=== PATIENT | female | born 1960 | race Asian ===

== ENCOUNTER 2019-10-04 10:15 | Day surgery (SDC) | payer MEDICAID ==
[2019-09-21 12:15] LABS: APPEARANCE,URINE CLEAR; BILIRUBIN, URINE NEGATIVE (NEGATIVE); GLUCOSE, URINE (UA) NEGATIVE (NEGATIVE); KETONES,URINE NEGATIVE (NEGATIVE); LEUKOCYTE ESTERASE ,URINE 1+ (NEGATIVE); NITRITE,URINE NEGATIVE (NEGATIVE); PH,URINE 5 (4.5-8.0); PROTEIN,URINE 2+ (NEGATIVE); UROBILINOGEN,URINE NORMAL MG/DL (0.0-1.0)
[2019-09-21 12:18] LABS: BASOPHILS % (AUTO) 0.7 % (0.0-2.0); EOSINOPHILS % (AUTO) 1.8 % (0.0-3.0); HEMATOCRIT 42.2 % (37.0-47.0); HEMOGLOBIN 13.7 G/DL (12.0-16.0); LYMPHOCYTES % (AUTO) 28.6 % (20.0-45.0); MEAN CORPUSCULAR VOLUME 93 FL (80-99); PLATELET COUNT 299 K/UL (150-450); RED BLOOD COUNT 4.55 M/UL (4.20-5.40); RED CELL DISTRIBUTION WIDTH 11.9 % (11.6-14.8); WHITE BLOOD COUNT 9.2 K/UL (4.8-10.8)
[2019-09-21 12:23] LABS: COLOR,URINE YELLOW
[2019-09-21 12:24] LABS: ANION GAP 11 mmol/L (5-15); BLOOD UREA NITROGEN 15 mg/dL (7-18); CALCIUM 9.7 MG/DL (8.5-10.1); CARBON DIOXIDE 28 MMOL/L (21-32); CHLORIDE 103 MMOL/L (98-107); CREATININE 0.8 MG/DL (0.55-1.30); POTASSIUM 4.2 MMOL/L (3.5-5.1); SODIUM 142 MMOL/L (136-145)
--- NOTE | 2019-09-21 12:49 | Diagnostic Imaging Report ---
Indication: Cough Technique: 2 views of the chest Comparison: None Findings: Lungs and pleural spaces are clear. The heart size is normal. The bones are unremarkable. The aorta is calcified. The bones are unremarkable Impression: Negative
--- NOTE | 2019-09-29 15:53 | Cardiology Report ---
APPROVED REPORT EKG Measurement Heart [id number] Normal sinus rhythm Normal ECG
--- NOTE | 2019-10-01 13:15 | Pre-op HX & Phy Repo 2 SIG ---
DATE OF ADMISSION: 10/04/2019 SCHEDULED FOR OUTPATIENT SURGERY: October 04, 2019. HISTORY OF PRESENT ILLNESS: The patient is a 58-year-old female in overall good health with ductal carcinoma in situ, left breast. The patient presented recently with a left breast mass. She underwent mammography and ultrasound. The imaging studies revealed two lesions in the right breast, one at 10 o'clock 4 cm from the nipple a 1.3 cm mass. Core biopsy revealed fibroadenoma. Also in the right breast at 12 o'clock, there was a 7 mm periareolar mass. Core biopsy revealed sclerosing adenosis. Recommendation was followup in six months. However, the left breast mass clinically present and palpable is at 2 o'clock 4 cm from the nipple measuring 3.3 x 1.2 x 1.4 cm and core biopsy views revealed ductal carcinoma in situ. She is scheduled to undergo left breast partial mastectomy. PAST MEDICAL HISTORY AND MEDICATIONS: None. ALLERGIES: Sulfa. OPERATIONS: section, excision of neck cyst, and removal of left breast cyst. REVIEW OF SYSTEMS: She is 3, para 3. Last menstrual period age 49. PHYSICAL EXAMINATION: GENERAL: She is well developed and well nourished, 5 foot 2 inches, 138 pounds. VITAL SIGNS: Within normal limits. HEENT: Within normal limits. LUNGS: Clear. HEART: Regular rhythm. BREASTS: Small. The right side has no palpable mass. The left side has a palpable mass at the areolar border at 2 o'clock measuring approximately 3 cm. There is no fixation. There is no palpable axillary, supraclavicular lymphadenopathy. ABDOMEN: Soft. PELVIC AND RECTAL: Per primary care. EXTREMITIES: Without edema. NEUROLOGIC: Physiologic. IMPRESSION: Left breast mass with core biopsy revealing ductal carcinoma in situ. PLAN: Left breast partial mastectomy. I have had a full discussion with the patient regarding the nature of her condition, the nature of the surgery, indications, alternatives, options, and risks including bleeding, infection, scarring or distortion of breast or nipple, need for additional treatment including more surgery or additional treatments, radiation therapy and others based on final pathology, and hormonal blockade as well. All questions have been answered. She understands and agrees to proceed. Mina Luna M.D. DR: MARTHA JOB#: [id number] CC:
[2019-10-04] VITALS (9 sets, daily range): BP systolic 138–160; BP diastolic 65–84
[~2019-10-04] VITALS: Ht 157.5 cm; Wt 62.6 kg
[2019-10-04] MEDS ORDERED: LR 1000ml 1,000 ML IVLG SCH (10:34)
--- NOTE | 2019-10-04 10:36 | Immediate Post-Op Evaluation ---
Immediate Post-Op Evalulation Immediate Post-Op Evalulation Procedure: L Breast Partial Mastectomy Date of Evaluation: Oct 04, 2019 Time of Evaluation: 13:25 IV Fluids: 700 LR Blood Products: 0 Estimated Blood Loss: 20 Urinary Output: 0 Blood Pressure Systolic: 143 Blood Pressure Diastolic: 70 Pulse Rate: 60 Respiratory Rate: 14 O2 Sat by Pulse Oximetry: 98 Temperature (Fahrenheit): 98.4 Pain Score (1-10): 2 Nausea: No Vomiting: No Complications 0 Patient Status: awake, reacts, patent, extubated, none Hydration Status: adequate Dru Gram Ancef IV Given Within 1 Hr of Incision: Yes Time Given: 12:11 Klaus Torres MD Oct 04, 2019 10:36
[2019-10-04] MEDS ORDERED: fentaNYL 100 mcg/2 mL IV PRN (10:45)
[2019-10-04] MEDS ORDERED: LORazepam Inj 2mg/ml 1ml IV PRN (10:45)
[2019-10-04] MEDS ORDERED: Midazolam 2mg/2ml Inj IVP PRN (10:45)
[2019-10-04] MEDS ORDERED: oxyCODONE HCL/Acetaminophen 5/325mg ORAL PRN (10:45)
[2019-10-04] MEDS ORDERED: Acetaminophen (Non formulary) 100 ML IV ONE (10:45)
[2019-10-04] MEDS ORDERED: DiphenhydrAMINE 50mg/ml Inj IVP PRN (10:45)
[2019-10-04] MEDS ORDERED: Labetalol 5mg/ml 20ml vial IV PRN (10:45)
[2019-10-04] MEDS ORDERED: HYDROcodone/Acetamin 5/325 tab ORAL PRN ×2 (10:45→13:15)
[2019-10-04] MEDS ORDERED: HYDROcodone/Acetamin 7.5/325 tab ORAL PRN (10:45)
[2019-10-04] MEDS ORDERED: Meperidine 50mg/ml Inj(FOR RIGORS ONLY) IVP PRN (10:45)
[2019-10-04] MEDS ORDERED: Metoclopramide 10mg/2ml Inj IVP PRN (10:45)
[2019-10-04] MEDS ORDERED: Ketorolac 30mg Inj IV PRN ×2 (10:45)
[2019-10-04] MEDS ORDERED: Hydromorphone 0.5mg/0.5ml inj IVP PRN (10:45)
[2019-10-04] MEDS ORDERED: Atropine Sulfate 0.4mg/ml inj IVP PRN (10:45)
[2019-10-04] MEDS ORDERED: TURMERIC 500 M1 EAC1 PO (10:57)
[2019-10-04] MEDS ORDERED: VITAMIN B COMP1 EAC2 ORAL (10:57)
--- NOTE | 2019-10-04 11:26 | Anethesia Preoperative Eval ---
Anesthesia Pre-op PMH/ROS General Date of Evaluation: Oct 04, 2019 Time of Evaluation: 12:02 Anesthesiologist: Melissa ASA Score: ASA 2 Mallampati Score Class I : Soft palate, uvula, fauces, pillars visible Class II: Soft palate, uvula, fauces visible Class III: Soft palate, base of uvula visible Class IV: Only hard plate visible Mallampati Classification: Class I Surgeon: Cheryl Diagnosis: L Breast CA In Situ Surgical Procedure: L Breast Partial Mastectomy Anesthesia History: none Family History: no anesthesia problems Allergies: Coded Allergies: SULFAMETHOXAZOLE (Verified Allergy, Unknown, SWOLLEN LIPS, 10/04/19) TRIMETHOPRIM (Verified Allergy, Unknown, SWOLLEN LIPS, 10/04/19) Medications: see eMAR Patient NPO?: Yes Past Medical History Cardiovascular: Reports: HTN, other - HL PSxH Narrative: L Breast Cyst Removed Anesthesia Pre-op Phys. Exam Physician Exam Last Vital Signs Date Time Temp Pulse Resp B/P (MAP) Pulse Ox O2 Delivery O2 Flow Rate FiO2 10/04/19 11:07 Room Air 10/04/19 10:58 97.5 61 18 138/82 99 Constitutional: NAD Neurologic: CN 2-12 intact Cardiovascular: RRR Respiratory: CTA Gastrointestinal: S/NT/ND Airway Exam Mallampati Score: Class I MO: full ROM: full Teeth: intact Anesthesia Pre-op A/P Risk Assessment & Plan Assessment: ASA 2 Plan: GA, SED Status Change Before Surgery: No Pre-Antibiotics Dru Gram Ancef IV Given Within 1 Hr of Incision: Yes Time Given: 12:11 Klaus Torres MD Oct 04, 2019 11:26
[2019-10-04] MEDS ORDERED: Lidocaine 1% MPF 10mg/ml 5ml ONE ×3 (11:32→11:41)
[2019-10-04] MEDS ORDERED: Sodium Chloride 10ml vial INJ ONE ×2 (11:40→11:41)
[2019-10-04] MEDS ORDERED: Dexamethasone 4mg/ml vial ONE ×2 (11:40→11:41)
[2019-10-04] MEDS ORDERED: Midazolam 2mg/2ml Inj ONE (11:41)
[2019-10-04] MEDS ORDERED: fentaNYL 100 mcg/2 mL IV ONE ×2 (11:41→12:40)
--- NOTE | 2019-10-04 11:42 | Pre-Procedure Note/Attestation ---
Pre-Procedure Note/Attestation Complete Prior to Procedure Planned Procedure: left Procedure Narrative: excision left breast mass ductal carcinoma in situ Indications for Procedure Pre-Operative Diagnosis: left breast mass DCIS Attestation I attest that I discussed the nature of the procedure; its benefits; risks and complications; and alternatives (and the risks and benefits of such alternatives ), prior to the procedure, with the patient (or the patient's legal accounts payable representative). I attest that, if there was a reasonable possibility of needing a blood transfusion, the patient (or the patient's legal accounts payable representative) was given the [facility] standardized written summary, pursuant to the [place] Blood Safety Act ([place] Health and Safety Code # 1645, as amended). I attest that I re-evaluated the patient just prior to the surgery and that there has been no change in the patient's H&P, except as documented below: none Mina Luna MD Oct 04, 2019 11:42
[2019-10-04] MEDS ORDERED: Bacitracin 50000 Units Vial ONE (11:48)
[2019-10-04] MEDS ORDERED: Lidocaine 1% 10mg/ml/Epi 0.005mg/ml 30ml vial INJ ONE (11:49)
[2019-10-04] MEDS ORDERED: Bupivacaine 0.5% Inj 30 ml vial INJ ONE (11:49)
[2019-10-04] MEDS ORDERED: Propofol 200mg/20ml IV ONE (11:59)
[2019-10-04] MEDS ORDERED: NS Irrig 1000ml ONE (12:00)
[2019-10-04] MEDS ORDERED: Sterile Water Irrig 1000ml IRRIG ONE (12:00)
[2019-10-04] MEDS ORDERED: LR 1000ml ONE (12:00)
--- NOTE | 2019-10-04 13:05 | Brief Operative Note ---
Immediate Post Operative Note Operative Note Pre-op Diagnosis: left breast mass DCIS Procedure: left breast partial mastectomy Post-op Diagnosis: same Post-op Diagnosis: same as pre-op Findings: consistent w/pre-op dx studies Surgeon: jai Anesthesiologist: freda Anesthesia: general Specimen: yes - left breast partial mastectomy Complications: none Condition: stable Fluids: see anesthesia record Estimated Blood Loss: minimal Drains: none Implant(s) used?: No Mina Luna MD Oct 04, 2019 13:04
[2019-10-04] MEDS ORDERED: Tylenol #3 tab (300mg/30mg) ORAL PRN (13:15)
[2019-10-04] MEDS ORDERED: HYDROmorphone 1mg/ml Carpuject SUBQ PRN (13:15)
[2019-10-04] MEDS ORDERED: D5 1/2NS 1,000 ML IV SCH (16:00)
--- NOTE | 2019-10-04 22:00 | Operative Note - Dictated ---
DATE OF OPERATION: 10/04/2019 SURGEON: Mina Luna M.D. SAP PI DEVELOPER: None. ANESTHESIOLOGIST: Klaus Torres M.D. TYPE OF ANESTHESIA: General. PREOPERATIVE DIAGNOSIS: Left breast mass with core biopsy revealing ductal carcinoma in situ. POSTOPERATIVE DIAGNOSIS: Left breast mass with core biopsy revealing ductal carcinoma in situ. OPERATION PERFORMED: Left breast partial mastectomy. DESCRIPTION OF PROCEDURE: The patient was taken to the operating room and under general anesthesia with sequential compression device stockings in place, she was prepped and draped in usual fashion. A curvilinear upper outer quadrant left breast incision was made as the lesion was located 4 cm from the nipple at 2 o'clock and measured 3.3 x 1.2 x 1.4 cm by ultrasound. Flaps were dissected circumferentially. A wide resection was performed orienting the specimen with suture markers placed anterior, superior, and medial. Specimen was given off the field for pathology. The field was irrigated and hemostasis carefully achieved with cautery. Incision was closed with 4-0 Vicryl continuous subcutaneous suture, followed by continuous of 4-0 Monocryl subcuticular suture. Mastisol and half-inch Steri-Strips were applied followed by dry sterile dressing. Final sponge needle counts were correct. The patient tolerated the procedure well and left the operating room in good condition. Mina Luna M.D. DR: LARRY JOB#: [id number] CC:
== END 2019-10-04 15:50 | disposition home or self-care (01) ==
LOC: SUR 10:15
DX: D05.12 Intraductal carcinoma in situ of left breast (principal); I10 Essential (primary) hypertension; Z88.2 Allergy status to sulfonamides; Z88.8 Allergy status to other drugs, medicaments and biological substances
CPT/HCPCS: 19301; 36415; 71046; 80048; 81001; 85025; 85610; 85730; 93005; J0690; J1100; J1885; J2250; J2405; J2704; J3010; Z7512; 94003; 94150

== ENCOUNTER 2019-12-08 07:08 | Inpatient (IN) | payer MEDICAID ==
[2019-12-06 09:53] LABS: APPEARANCE,URINE CLEAR; BILIRUBIN, URINE NEGATIVE (NEGATIVE); GLUCOSE, URINE (UA) NEGATIVE (NEGATIVE); KETONES,URINE NEGATIVE (NEGATIVE); LEUKOCYTE ESTERASE ,URINE 1+ (NEGATIVE); NITRITE,URINE NEGATIVE (NEGATIVE); PH,URINE 5 (4.5-8.0); PROTEIN,URINE NEGATIVE (NEGATIVE); UROBILINOGEN,URINE NORMAL MG/DL (0.0-1.0)
[2019-12-06 09:57] LABS: COLOR,URINE YELLOW
[2019-12-06 09:58] LABS: BASOPHILS % (AUTO) 0.9 % (0.0-2.0); EOSINOPHILS % (AUTO) 2.2 % (0.0-3.0); HEMATOCRIT 37.9 % (37.0-47.0); HEMOGLOBIN 12.6 G/DL (12.0-16.0); LYMPHOCYTES % (AUTO) 30.7 % (20.0-45.0); MEAN CORPUSCULAR VOLUME 94 FL (80-99); MONOCYTES % (AUTO) 6.4 % (1.0-10.0); NEUTROPHILS % (AUTO) 59.8 % (45.0-75.0); PLATELET COUNT 254 K/UL (150-450); RED BLOOD COUNT 4.03 M/UL (4.20-5.40); RED CELL DISTRIBUTION WIDTH 12.1 % (11.6-14.8); WHITE BLOOD COUNT 7.1 K/UL (4.8-10.8)
--- NOTE | 2019-12-07 09:15 | Pre-op HX & Phy Repo 2 SIG ---
DATE OF ADMISSION: 12/08/2019 SCHEDULED FOR SURGERY: December 08, 2019. HISTORY OF PRESENT ILLNESS: The patient is a 59-year-old female in overall good health, who underwent surgery October 04, 2019 for a left upper outer breast mass with core biopsy revealing ductal carcinoma in situ. 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 The patient is scheduled to undergo re-excision of her ductal carcinoma in situ, left breast and left axillary lymph node biopsy. The carcinoma is estrogen and progesterone receptor positive, HER2 negative. The patient underwent genetic testing, which was negative. The patient has been seen by Medical Oncology, who concurs. PAST MEDICAL HISTORY: None. MEDICATIONS: None. ALLERGIES: Sulfa. OPERATIONS: section x3, excision of neck cyst in the past many years ago, and excision of a cyst of the left breast. REVIEW OF SYSTEMS: The patient's last menstrual period was at age 49. She is 5, para 3. FAMILY HISTORY: Sister with a history of breast cancer at age 54. PHYSICAL EXAMINATION: GENERAL: The patient is 5 feet 1 inch, 135 pounds. VITAL SIGNS: Within normal limits. HEENT: Within normal limits. LUNGS: Clear. HEART: Regular rhythm. BREASTS: Reveals a curvilinear scar in the upper outer quadrant of the left breast which is nicely healed. There is no palpable mass in the left breast or in the right breast. There is no palpable axillary or supraclavicular lymphadenopathy. ABDOMEN: Soft. PELVIC: Per primary care. RECTAL: Per primary care. EXTREMITIES: Without edema. NEUROLOGIC: Physiologic. IMPRESSION: 1. Invasive mucinous carcinoma, left breast, status post left partial mastectomy with clear margins. 2. Ductal carcinoma in situ, left breast, 46 mm span with positive margins. PLAN: Reexcision left breast ductal carcinoma in situ and left axillary lymph node biopsy. I have had a full discussion with the patient regarding the surgery, indications, alternatives, options, and risks including bleeding, infection, neuralgia or neuritis, need for drain in the axilla, need for additional treatment based on final pathology including radiation therapy, chemotherapy, hormonal blockade and others, and discussed the risk of additional deformity or scarring or the breast. All questions have been answered. The patient understands and agrees to proceed. Mina Luna M.D. DR: CONG JOB#: [id number] CC:
[2019-12-08] VITALS (13 sets, daily range): BP systolic 97–152; BP diastolic 51–78
[~2019-12-08] VITALS: Ht 157.5 cm; Wt 63.3 kg
[~2019-12-08 07:08] MED LIST: TURMERIC 500 M1 EAC1 PO; VITAMIN B COMP1 EAC2 ORAL
--- NOTE | 2019-12-08 08:20 | Pre-Procedure Note/Attestation ---
Pre-Procedure Note/Attestation Complete Prior to Procedure Planned Procedure: left Procedure Narrative: re-excision DCIS left breast and left axillary lymph node biopsy Indications for Procedure Pre-Operative Diagnosis: Invasive carcinoma left breast and extensive ductal carcinoma in situ left breast Attestation I attest that I discussed the nature of the procedure; its benefits; risks and complications; and alternatives (and the risks and benefits of such alternatives ), prior to the procedure, with the patient (or the patient's legal client relations representative). I attest that, if there was a reasonable possibility of needing a blood transfusion, the patient (or the patient's legal client relations representative) was given the [facility] standardized written summary, pursuant to the [place] Blood Safety Act ([place] Health and Safety Code # 1645, as amended). I attest that I re-evaluated the patient just prior to the surgery and that there has been no change in the patient's H&P, except as documented below: none Mina Luna MD Dec 08, 2019 08:20
[2019-12-08 08:21] LABS: ANION GAP 8 mmol/L (5-15); BLOOD UREA NITROGEN 16 mg/dL (7-18); CALCIUM 8.8 MG/DL (8.5-10.1); CARBON DIOXIDE 27 MMOL/L (21-32); CHLORIDE 109 MMOL/L (98-107); CREATININE 0.7 MG/DL (0.55-1.30); SODIUM 144 MMOL/L (136-145)
[2019-12-08] MEDS ORDERED: Bupivacaine 0.5% Inj 30 ml vial INJ ONE (08:32)
[2019-12-08] MEDS ORDERED: Bacitracin 50000 Units Vial ONE (08:32)
[2019-12-08] MEDS ORDERED: Lidocaine 1% 10mg/ml/Epi 0.005mg/ml 30ml vial INJ ONE (08:32)
[2019-12-08] MEDS ORDERED: Bupivacaine w/Epi 0.5% 30ml Vial INJ ONE (08:32)
[2019-12-08] MEDS ORDERED: LR 1000ml 1,000 ML IVLG SCH (08:36)
[2019-12-08] MEDS ORDERED: Ketorolac 30mg Inj IV PRN ×2 (08:45)
[2019-12-08] MEDS ORDERED: Atropine Sulfate 0.4mg/ml inj IVP PRN (08:45)
[2019-12-08] MEDS ORDERED: Labetalol 5mg/ml 20ml vial IV PRN (08:45)
[2019-12-08] MEDS ORDERED: Hydromorphone 0.5mg/0.5ml inj IVP PRN (08:45)
[2019-12-08] MEDS ORDERED: LORazepam Inj 2mg/ml 1ml IV PRN (08:45)
[2019-12-08] MEDS ORDERED: HYDROcodone/Acetamin 5/325 tab ORAL PRN ×2 (08:45→12:30)
[2019-12-08] MEDS ORDERED: Metoclopramide 10mg/2ml Inj IVP PRN (08:45)
[2019-12-08] MEDS ORDERED: fentaNYL 100 mcg/2 mL IV PRN (08:45)
[2019-12-08] MEDS ORDERED: Meperidine 50mg/ml Inj(FOR RIGORS ONLY) IVP PRN (08:45)
[2019-12-08] MEDS ORDERED: Midazolam 2mg/2ml Inj IVP PRN (08:45)
[2019-12-08] MEDS ORDERED: Acetaminophen (Non formulary) 100 ML IV ONE (08:45)
[2019-12-08] MEDS ORDERED: DiphenhydrAMINE 50mg/ml Inj IVP PRN (08:45)
[2019-12-08] MEDS ORDERED: HYDROcodone/Acetamin 7.5/325 tab ORAL PRN (08:45)
[2019-12-08] MEDS ORDERED: oxyCODONE HCL/Acetaminophen 5/325mg ORAL PRN (08:45)
--- NOTE | 2019-12-08 08:46 | Anethesia Preoperative Eval ---
Anesthesia Pre-op PMH/ROS General Date of Evaluation: Dec 08, 2019 Time of Evaluation: 08:54 Anesthesiologist: Melissa ASA Score: ASA 3 Mallampati Score Class I : Soft palate, uvula, fauces, pillars visible Class II: Soft palate, uvula, fauces visible Class III: Soft palate, base of uvula visible Class IV: Only hard plate visible Mallampati Classification: Class I Surgeon: Cheryl Diagnosis: L Ductal Carcioma in Situ Surgical Procedure: Re Excision L Ductal Carcioma in Situ, L Axillary Node BX Anesthesia History: none Family History: no anesthesia problems Allergies: Coded Allergies: SULFAMETHOXAZOLE (Verified Allergy, Unknown, SWOLLEN LIPS, 12/07/19) TRIMETHOPRIM (Verified Allergy, Unknown, SWOLLEN LIPS, 12/07/19) Medications: see eMAR Patient NPO?: Yes NPO Date: Dec 07, 2019 NPO Time: 2029 Past Medical History Cardiovascular: Reports: HTN, other - HL Hematology/Immune: Reports: other - Breast CA PSxH Narrative: L Breast Sx Anesthesia Pre-op Phys. Exam Physician Exam Last Vital Signs Date Time Temp Pulse Resp B/P (MAP) Pulse Ox O2 Delivery O2 Flow Rate FiO2 12/08/19 07:43 Room Air 12/08/19 07:42 97.5 60 18 123/73 (90) 97 Constitutional: NAD Neurologic: CN 2-12 intact Cardiovascular: RRR Respiratory: CTA Gastrointestinal: S/NT/ND Airway Exam Mallampati Score: Class II MO: full ROM: full Teeth: missing Dentures: upper, lower Anesthesia Pre-op A/P Labs Chemistry Test 12/08/19 07:55 Sodium Level 144 MMOL/L (136-145) Potassium Level 4.0 MMOL/L (3.5-5.1) Chloride Level 109 MMOL/L (98-107) H Carbon Dioxide Level 27 MMOL/L (21-32) Anion Gap 8 mmol/L (5-15) Blood Urea Nitrogen 16 mg/dL (7-18) Creatinine 0.7 MG/DL (0.55-1.30) Estimat Glomerular Filtration Rate > 60 mL/min (>60) Glucose Level 94 MG/DL (74-106) Calcium Level 8.8 MG/DL (8.5-10.1) Risk Assessment & Plan Assessment: ASA 3 Plan: GA, SED Status Change Before Surgery: Yes Pre-Antibiotics Dru Gram Ancef IV Given Within 1 Hr of Incision: Yes Time Given: 09:11 Klaus Torres MD Dec 08, 2019 08:46
[2019-12-08] MEDS ORDERED: Lidocaine 1% Plain 30 ml INJ ONE (08:47)
[2019-12-08] MEDS ORDERED: Lidocaine 1% MPF 10mg/ml 5ml ONE (08:48)
[2019-12-08] MEDS ORDERED: Dexamethasone 4mg/ml vial ONE (08:48)
[2019-12-08] MEDS ORDERED: fentaNYL 100 mcg/2 mL IV ONE (08:48)
[2019-12-08] MEDS ORDERED: Sodium Chloride 10ml vial INJ ONE (08:48)
[2019-12-08] MEDS ORDERED: Propofol 1,000mg/ 100ml btl IV ONE (09:00)
[2019-12-08] MEDS ORDERED: Sterile Water Irrig 1000ml IRRIG ONE (09:00)
[2019-12-08] MEDS ORDERED: LR 1000ml ONE (09:00)
[2019-12-08] MEDS ORDERED: NS Irrig 1000ml ONE (09:00)
[2019-12-08] MEDS ORDERED: Propofol 200mg/20ml IV ONE (09:00)
[2019-12-08] MEDS ORDERED: Alfentanil 2ml Inj ONE (09:35)
--- NOTE | 2019-12-08 09:48 | Immediate Post-Op Evaluation ---
Immediate Post-Op Evalulation Immediate Post-Op Evalulation Procedure: Re Excision L Ductal Carcioma in Situ, L Axillary Node BX Date of Evaluation: Dec 08, 2019 Time of Evaluation: 10:57 IV Fluids: 600 LR Blood Products: 0 Estimated Blood Loss: 20 Urinary Output: 0 Blood Pressure Systolic: 153 Blood Pressure Diastolic: 78 Pulse Rate: 64 Respiratory Rate: 16 O2 Sat by Pulse Oximetry: 100 Temperature (Fahrenheit): 97 Pain Score (1-10): 2 Nausea: No Vomiting: No Complications 0 Patient Status: awake, reacts, patent, none Hydration Status: adequate Dru Gram Ancef IV Given Within 1 Hr of Incision: Yes Time Given: 09:11 Klaus Torres MD Dec 08, 2019 09:48
[2019-12-08] MEDS ORDERED: Flumazenil 0.1mg/ml 5ml Inj IV ONE (10:03)
--- NOTE | 2019-12-08 10:31 | Brief Operative Note ---
Immediate Post Operative Note Operative Note Pre-op Diagnosis: Invasive carcinoma left breast and extensive ductal carcinoma in situ left breast Procedure: re-excision DCIS left breast and left axillary lymph node biopsy Post-op Diagnosis: same Post-op Diagnosis: same as pre-op Findings: consistent w/pre-op dx studies Surgeon: jai Anesthesiologist: freda Anesthesia: general Specimen: yes - left breast tissue and left axillary lymph nodes Complications: none Condition: stable Fluids: see anesthesia record Estimated Blood Loss: none Drains: ADRIENNE Implant(s) used?: No Mina Luna MD Dec 08, 2019 10:31
--- NOTE | 2019-12-08 11:55 | NUR ---
NURSE NOTES: Patient arrived to the floor post op. Patient observed sleeping in bed, no acute signs of distress noted. Patient has call light at bedside and bed in the low and locked position. Called RT for incentive spirometer. Patient has surgical bra and post op dressing is clean dry and intact. vitals are stable, will continue to monitor patient.
[2019-12-08] MEDS ORDERED: HYDROmorphone 1mg/ml Carpuject SUBQ PRN (12:30)
[2019-12-08] MEDS: D5 1/2NS w/KCl 20mEq 1,000 ML IV SCH (14:38)
--- NOTE | 2019-12-08 17:00 | Operative Note - Dictated ---
DATE OF OPERATION: 12/08/2019 SURGEON: Mina Luna M.D. PROCESS CHEMIST: None. ANESTHESIOLOGIST: Klaus Torres M.D. TYPE OF ANESTHESIA: General. PREOPERATIVE DIAGNOSES: Invasive mucinous carcinoma, left breast and extensive ductal carcinoma in situ, left breast; status post left breast partial mastectomy on 10/04/2019 with positive DCIS margins. POSTOPERATIVE DIAGNOSES: Invasive mucinous carcinoma, left breast and extensive ductal carcinoma in situ, left breast; status post left breast partial mastectomy on 10/04/2019 with positive DCIS margins. OPERATIONS PERFORMED: 1. Re-excision left breast, ductal carcinoma in situ. 2. Left axillary lymph node biopsy. DESCRIPTION OF PROCEDURE: The patient was taken to the operating room and under general anesthesia with sequential compression device stockings in place, she was prepped and draped in usual fashion. Attention was first directed to the breast where a curvilinear upper outer quadrant incision was reopened from 10/04/2019 surgery. Tissue was taken for additional anterior, then medial and superior margins and inferior margin. The field was irrigated with antibiotic solution. Hemostasis carefully achieved with cautery. Incision was closed with interrupted 3-0 Vicryl and deep dermal subcutaneous sutures followed by continuous 4-0 Monocryl subcuticular suture. Attention was then directed to the left axilla where an incision was made achieving hemostasis with cautery and incising the clavipectoral fascia. Lower level lymph nodes were resected using the Thunderbeat electrosurgical device and a 2-0 Vicryl tie. The field was irrigated. Pathology confirmed the presence of lymph nodes. Through a separate stab incision inferiorly, a large flat All-Whitfield was placed into the axilla and sutured to the skin with 2-0 nylon skin suture. After ascertaining the hemostasis was secured, the clavipectoral fascia was closed with interrupted 3-0 Vicryl, subcutaneous tissues closed with interrupted 3-0 Vicryl, and the skin closed with continuous 4-0 Monocryl subcuticular suture. Mastisol and half-inch Steri-Strips were applied to both incisions followed by dry sterile dressing and application of a postsurgical brassiere. The patient tolerated the procedure well and left the operating room in good condition. Mina Luna M.D. DR: BERNY JOB#: [id number] CC:
[2019-12-08] MEDS: ceFAZolin sod 1 GM in D5W 55 ML IV SCH (17:59)
--- NOTE | 2019-12-08 19:27 | NUR ---
HAND-OFF: Report given to BYRON Villagomez.
--- NOTE | 2019-12-08 19:30 | NUR ---
NURSE NOTES: Receive a report from BYRON Mcdermott. Round is done. Pt is awake and alert. No acute distress noted. Pain is controlled after pain medication earlier. Surgery site kept dry and clean and wearing a surgical bra. Adrienne is in place on left side and drained with serosanguineous color. Will educate how to empty ADRIENNE. Call light within reach. Will continue to monitor.
[2019-12-09] VITALS: BP 118/61
--- NOTE | 2019-12-09 | NUR ---
NURSE NOTES: Demonstrate and explain how to empty ADRIENNE and total 5ml out. Will follow up this morning.
--- NOTE | 2019-12-09 00:05 | NUR ---
NURSE NOTES: Surgery site pain is tolerable. Offer pain medication but refuses to take it at this time. Inform pt to ask pain medication as needed. No chilling or febrile sensation. Will continue to monitor.
[2019-12-09] MEDS: ceFAZolin sod 1 GM in D5W 55 ML IV SCH (00:07)
[2019-12-09] MEDS: D5 1/2NS w/KCl 20mEq 1,000 ML IV SCH (00:07)
[2019-12-09 04:00] VITALS: BP 118/60
--- NOTE | 2019-12-09 06:00 | NUR ---
NURSE NOTES: Denies any pain. Dressing kept dry and clean. Pt emptied out ADRIENNE 3ml SS color by herself with RN supervision. Will continue to monitor.
--- NOTE | 2019-12-09 07:25 | NUR ---
NURSE NOTES: Report received from o RN, rounds made. Patient sitting in high fowlers position in bed. No distress/SOB on RA, no NV, no pain at this time. IS at bedside, encouraged patient to do 10x hour, verbalized understanding. IVF (D5 1/2 +20KCL at 75 ml/hr) infusing to right hand, site asymptomatic. Left breast/axillary dressing CDI, ADRIENNE in place, small amount of serosanguineous output noted, wearing surgical bra. MILTON CMS +, skin warm, moves arm/hand, pulses palpable, no NT. Bilateral SCDs off. Tolerating regular diet. Call light in reach, bed in lowest position, will continue to monitor.
--- NOTE | 2019-12-09 07:30 | NUR ---
HAND-OFF: Report given to BYRON Irwin. Round is done. Pt is having breakfast. No acute distress noted.
[2019-12-09 08:00] VITALS: BP 114/65
--- NOTE | 2019-12-09 11:52 | General Progress Note ---
Progress Note Progress Note AVSS doing well. ADRIENNE drain 8cc overnight left breast and axilla incisions with intact steristrips Imp. Stable Plan; discharge with ADRIENNE drain and post-surgical brassiere ' instructions/limitations/supplies discussed/provided f/u 12/14 office Rx - none Mina Luna MD Dec 09, 2019 11:52
[2019-12-09 12:00] VITALS: BP 126/60
[2019-12-09 13:47] VITALS: BP 118/68
--- NOTE | 2019-12-09 13:47 | 48 Hour Post Anesthesia Eval ---
Post Anesthesia Evaluation Procedure: Re Excision L Ductal Carcioma in Situ, L Axillary Node BX Date of Evaluation: Dec 09, 2019 Time of Evaluation: 13:45 Blood Pressure Systolic: 118 0: 68 Pulse Rate: 74 Respiratory Rate: 20 Temperature (Fahrenheit): 97.8 O2 Sat by Pulse Oximetry: 99 Airway: patent Nausea: No Vomiting: No Pain Intensity: 2 Hydration Status: adequate Cardiopulmonary Status: stable Mental Status/LOC: patient returned to baseline Follow-up Care/Observations: n/a Post-Anesthesia Complications: none Follow-up care needed: ready to discharge Tanner Quintero MD Dec 09, 2019 13:47
--- NOTE | 2019-12-09 13:55 | NUR ---
NURSE NOTES: Discharge instructions reviewed with patient and family member, verbalized understanding. Heplock discontinued, no active bleeding. Patient demonstrated proper emptying of left ADRIENNE. Dressing supplies (4x4 gauze/paper tape) and output measuring medication cups provided. All belongings sent with patient. Patient ambulated down to [facility] with Yoly BORGES, in stable condition. Discharged home at 1355.
--- NOTE | 2019-12-09 15:31 | NUR ---
CASE MANAGEMENT: INITIAL REVIEW 59 YR OLD FEMALE HERE FOR ELECTIVE SURGERY SI:INVASIVE CARCINOMA LEFT BREAST AND EXTENSIVE CARCINOMA IN SITU LEFT BREAST 97.5 60 18 123/73 97% ON RA IS:RE-EXCISION DCIS LEFT BREAST AND LEFT AXILLARY NODE BIOPSY; WITH ADRIENNE DRAIN IVF D5 @75ML/HR IV ANCEF X2 BAGS NORCO Q4HR \: 3E MED SURG UNIT DCP: HOME WHEN MEDICALLY STABLE
--- NOTE | 2019-12-11 14:26 | Discharge Summary ---
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 59-year-old female in overall good health, who underwent surgery October 04, 2019 for a left upper outer breast mass with core biopsy revealing ductal carcinoma in situ. Final pathology revealed a 19 mm invasive mucinous carcinoma of the left breast with clear margins, but also ductal carcinoma in situ extending over 46 mm span ; the medial superior and anterior margins were positive; the inferior margin was less than 1 mm. The patient was scheduled to undergo re-excision of her ductal carcinoma in situ, left breast with left axillary lymph node biopsy. The carcinoma estrogen and progesterone receptor positive, HER2 negative. The patient underwent genetic testing, which was negative. The patient had been seen by Medical Oncology, who concurs. Procedures s/p 12/08/[address] Luna 1. Re-excision left breast, ductal carcinoma in situ. 2. Left axillary lymph node biopsy. Hospital Course status post surgery , tolerated surgery well course of recovery uneventful initially IV fluids s/p perioperative antibiotic output from [facility] drain closely monitored left breast and axilla incisions intact, with steri-strips pain management was addressed ; pain was controlled remained hemodynamically stable fall precautions maintained; ambulated without difficulties tolerated diet , IV fluids discontinued voided freely patient was instructed care of [facility] drain patient was stable for discharge with [facility] drain instruction/limitations/supplies discussed/provided patient to dollow-up in office 12/14 patient was stable for discharge FINAL DIAGNOSES 1. Invasive mucinous carcinoma, left breast 2. status post recent left breast partial mastectomy on 10/04/2019 3. Extensive ductal carcinoma in situ, left breast; 4. s/p Re-excision left breast, ductal carcinoma in situ with left axillary lymph node biopsy Discharge Condition Upon Discharge: stable Discharge Disposition Patient was discharged home Discharge Instructions Discharge Instructions Special Instructions I have been assigned to complete a D/C Summary on this account. I was not involved in the patient management Lora Purdy NP Dec 11, 2019 14:26
== END 2019-12-09 13:55 | disposition home or self-care (01) | DRG 581 ==
LOC: SUR 07:08 → 3E 11:04
PROC: 0HBU0ZZ Excision of Left Breast, Open Approach (ICD-10-PCS; principal; 2019-12-08 09:00)
PROC: 07B60ZX Excision of Left Axillary Lymphatic, Open Approach, Diagnostic (ICD-10-PCS; principal; 2019-12-08 09:00)
DX: C50.912 Malignant neoplasm of unspecified site of left female breast (principal); Z17.0 Estrogen receptor positive status [ER+]
CPT/HCPCS: 36415; 80048; 81001; 85025; 85610; 85730; 87081; 94003; 94150; J2405; J3490